=== PATIENT | female | born 1985 | race Hispanic/Latino ===

== ENCOUNTER 2017-05-07 10:15 | Emergency (ER) | payer OTHER ==
[2017-05-07 10:22] VITALS: TEMP 97.9; O2SAT 97
--- NOTE | 2017-05-07 11:07 | C.PDOC ---
History Of Present Illness 32 yr old female presents to the ER with complaints of a "bump" to the vaginal lip for the past 5 days. States it is not tender. Patient reports she is active with only one partner and is on control. Patient denies fever, abdominal pain, dysuria, hematuria, vaginal discharge or vaginal bleeding. OB - Dr. Ray Time Seen by Provider: 05/07/17 11:05 Chief Complaint (Nursing): Abnormal Skin Integrity History Per: Patient History/Exam Limitations: no limitations Onset/Duration Of Symptoms: Days (5) Past Medical History Reviewed: Historical Data, Nursing Documentation, Vital Signs Vital Signs: Last Vital Signs Temp 97.9 F 05/07/17 10:19 Pulse 82 05/07/17 10:19 Resp 18 05/07/17 10:19 BP 116/79 05/07/17 10:19 Pulse Ox 97 05/07/17 11:34 Family History: States: No Known Family Hx - Social History Hx Alcohol Use: No Hx Substance Use: No - Immunization History Hx Tetanus Toxoid Vaccination: No Hx Influenza Vaccination: No Hx Pneumococcal Vaccination: No Review Of Systems Except As Marked, All Systems Reviewed And Found Negative. Constitutional: Negative for: Fever Gastrointestinal: Negative for: Abdominal Pain Genitourinary: Positive for: Other ((+) Bump to the vaginal lip). Negative for : Dysuria, Hematuria, Vaginal Discharge, Vaginal Bleeding Physical Exam - Physical Exam Appears: Non-toxic, No Acute Distress Skin: Warm, Dry, No Rash Head: Atraumatic, Normacephalic Oral Mucosa: Moist Gastrointestinal/Abdominal: Normal Exam, Soft, No Tenderness, No Guarding, No Rebound Pelvic: Other (Proximal right labia, non visicular lesion and non tender ( possible ingrown hair)) Extremity: Normal ROM, No Swelling Neurological/Psych: Oriented x3, Normal Speech, Normal Motor ED Course And Treatment O2 Sat by Pulse Oximetry: 97 (RA) Pulse Ox Interpretation: Normal Disposition - Disposition Referrals: Catrina Ray MD [Medical Doctor] - Disposition Time: 11:28 Additional Instructions: Ms. Kumar, thank you for letting us take care of you today. Return to the ER if your symptoms worsen, or if any problems. Follow up with Dr. Ray next week for a re-evaluation. You may need to have a biopsy of the skin lesion. Forms: [facility] (Irish), General Discharge Instructions Print Language: CHILEAN - Clinical Impression Clinical Impression: Skin lesion - Scribe Statement The provider has reviewed the documentation as recorded by the Mayelaibe Lizbet Lyn Provider Attestation: All medical record entries made by the Mayelaibe were at my direction and personally dictated by me. I have reviewed the chart and agree that the record accurately reflects my personal performance of the history, physical exam, medical decision making, and the department course for this patient. I have also personally directed, reviewed, and agree with the discharge instructions and disposition.
[2017-05-07 11:35] VITALS: BP 107/75; PULSE 60; RESP 16
== END 2017-05-07 11:36 | disposition home or self-care (01) ==
LOC: C.ER 10:15 → MERGE 10:15 → C.ER 11:36
DX: L98.9 Disorder of the skin and subcutaneous tissue, unspecified (principal)